=== PATIENT | female | born 1935 | race Caucasian/White ===

== ENCOUNTER → 2016-12-26 | Outpatient (CLI) | payer MEDICARE, OTHER ==
--- NOTE | 2016-12-26 10:37 | CT ---
EXAM DESCRIPTION: CT: Abdomen/Pelvis w/Contrast CLINICAL HISTORY: R63.4. Abnormal weight loss. COMPARISON: None. TECHNIQUE: Spiral-axial scans at 5.0 mm intervals through the abdomen and pelvis, after nonionic IV contrast. No oral contrast. Coronal and sagittal 2.0 mm reconstructions. Delayed scans, liver through the pelvis. Axial-spiral 5mm. No adverse reactions. Total Exam DLP: 605.45 mGy-cm. This exam was performed according to our departmental dose-optimization program which includes automated exposure control, adjustment of the mA and/or kV according to patient size and/or use of iterative reconstruction technique; to reduce radiation dose to as low as reasonably achievable (ALARA). FINDINGS: Lung bases and pleura: Bilateral fluffy nodules in the bases, less than 5 mm in diameter. Also a larger pleural-based density in the posterior recess of the right lung and a soft tissue density 8 mm nodule abutting the pleura and the right hemidiaphragm (series 2, image two). Small nodules and scarring in the inferior lingula and the left posterior recess. Liver, Stomach, Spleen, Adrenal Glands: Organs are unremarkable. Pancreas, Gallbladder, Ducts: Patient increased wall thickness of the gallbladder with radiodense material near the neck. Dilation of the common bile duct. Pancreatic duct not dilated with normal size and enhancement. Kidneys and Ureters: Multiple bilateral cortical cysts, more on the left kidney. No hydronephrosis or perirenal fluid. No radiodense stones. Mesentery: No free fluid. No free intraperitoneal air. Aorta: Moderate atherosclerotic calcification. Small Bowel: Minimal oral contrast with no distention. Terminal Ileum/Cecum: No distention. Oral contrast and fecal material in the cecum. Appendix not seen. Normal density of the surrounding fat. Colon: Diffuse fecal material with oral contrast in the proximal colon. Diverticula in the rectosigmoid. No complications. Pelvic Organs: Calcification and heterogeneous density and enhancement which could be within the left lateral endometrial cavity, left uterine wall, or medial border of the left ovary. Right ovary is also visible and may contain a small calcification. No calcifications in the urinary bladder. No fluid in the cul-de-sac. Spine and Bony Pelvis: Narrowing of the L5-S1 disc space. Posterior bulging L2-3 disc. Decreased bone density. No compression type abnormalities in the spine or destructive lesions. Minimal levoscoliosis. Minimal hypertrophic changes SI joints and lateral acetabula. Abdominal Wall/Back Soft Tissues: Small inguinal lymph nodes. IMPRESSION: 1. Possible gallbladder wall thickening. Sludge or stones in the gallbladder. Dilated common bile duct. Pancreas negative. Consider abdominal ultrasound. No ascites. Liver negative. 2. Calcification could be within a uterine fibroid, in the uterine wall, or left ovary. Consider pelvic ultrasound to evaluate location of calcification and left ovary. 3. Multiple bilateral renal cysts appear simple. 4. Multiple fluffy and soft tissue nodules in the lung bases. Consider post-contrast lung CT scan to evaluate for additional nodules, other parenchymal disease, and mediastinum/titi. Electronically signed by: Baldomero Slater MD 12/26/2016 10:35 AM CDT Workstation: [id number]
== END | disposition home or self-care (01) ==
LOC: CT 09:07
PROVIDERS: ATTEND Internal Medicine
DX: R63.4 Abnormal weight loss (principal)

== ENCOUNTER 2017-01-18 19:12 | Inpatient (IN) | payer MEDICARE, OTHER ==
--- NOTE | 2017-01-18 19:22 | ED.PDOC ---
History of Present Illness - General Chief Complaint: General Stated Complaint: feeling weak/dizzy Time Seen by Provider: 01/18/17 19:21 Source: patient, family Exam Limitations: no limitations - History of Present Illness Initial Comments: Priscila Carlisle 81 y/o female stated after coming from her chest ct this morning she gradually got weak felt dizzy , nauseated,and chills and not getting better decided to come to er.She stated does not have the appetite and losing weight was seen by teacher drama and oncologist Timing/Duration: 4-6 hours, getting worse Severity: moderate Improving Factors: nothing Worsening Factors: nothing Associated Symptoms: loss of appetite, weakness Allergies/Adverse Reactions: Allergies Promethazine [From Phenergan] Allergy (Verified 01/18/17 19:30) Home Medications: Ambulatory Orders Cephalexin 500 mg PO TID #030 cap 06/21/14 guaiFENesin W/CODEINE LIQ [Robitussin AC] 10 ml PO Q6HRS PRN #250 ml 06/21/14 Ondansetron [Zofran Odt] 4 mg PO Q6-8H PRN #10 tab 06/28/14 Review of Systems - Review of Systems Constitutional: States: weakness, other - weight loss,anorexia EENTM: States: no symptoms reported Respiratory: States: no symptoms reported Cardiology: States: no symptoms reported Gastrointestinal/Abdominal: States: no symptoms reported Genitourinary: States: no symptoms reported Musculoskeletal: States: no symptoms reported Skin: States: no symptoms reported Neurological: States: no symptoms reported Past Medical History (General) - Patient Medical History Hx Seizures: No Hx Stroke: No Hx Dementia: No Hx Asthma: No Hx of COPD: No Hx Cardiac Disorders: No Hx Congestive Heart Failure: No Hx Pacemaker: No Hx Hypertension: No Hx Thyroid Disease: No Hx Diabetes: No Hx Gastroesophageal Reflux: Yes Hx Renal Disease: No Hx Cancer: No Hx of HIV: No Hx Hepatitis C: No Hx MRSA: No Surgical History: no surgical history - Vaccination History Hx Tetanus, Diphtheria Vaccination: No Hx Influenza Vaccination: Yes - Social History Hx Tobacco Use: No Hx Alcohol Use: No Hx Substance Use: No Hx Substance Use Treatment: No Hx Depression: No - Activities of Daily Living Patient Lives Alone: No - lives with son - Female History Patient : No Family Medical History - Family History Mother Family History: No Known Hx Cardiac Disease: Yes - dad-diabetes Hx Family Cancer: Yes - mom-breast/ovarian Physical Exam - Physical Exam General Appearance: Frail, No apparent distress, Ill Appearing, Other - somnolent Eye Exam: bilateral normal Ears, Nose, Throat: hearing grossly normal Neck: non-tender, supple Respiratory: lungs clear, normal breath sounds Cardiovascular/Chest: normal peripheral pulses, regular rate, rhythm, no murmur Peripheral Pulses: radial,right: 1+, radial,left: 1+ Gastrointestinal/Abdominal: normal bowel sounds, soft, no organomegaly, tenderness - mid abdomen no peritoneal signs Back Exam: no CVA tenderness, no vertebral tenderness Extremity: no pedal edema, no calf tenderness Neurologic: no motor/sensory deficits, oriented x 3 Skin Exam: normal color, warm/dry Progress - Progress Progress: 01/18/17 21:17 Vital Signs - 8 hr 01/18/17 19:25 Temperature 100.8 F H Pulse Rate [ 81 left] Respiratory 18 Rate Blood Pressure 132/70 [left] O2 Sat by Pulse 96 Oximetry - Results/Orders Results/Orders: Laboratory Tests 01/18/17 01/18/17 01/18/17 19:27 19:27 19:27 WBC 14.0 H RBC 4.59 Hgb 13.4 Hct 40.6 MCV 88.6 MCH 29.3 MCHC 33.1 RDW 16.1 H Plt Count 180 MPV 7.4 Absolute Neuts (auto) 13.30 H Absolute Lymphs (auto) 0.10 L Absolute Monos (auto) 0.50 Absolute Eos (auto) 0.00 Absolute Basos (auto) 0.00 Neutrophils % 95.4 H Lymphocytes % 0.7 L Monocytes % 3.6 Eosinophils % 0.0 L Basophils % 0.3 Sodium 132 L Potassium 3.9 Chloride 99 L Carbon Dioxide 26 Anion Gap 10.9 L BUN 16 Creatinine 0.90 BUN/Creatinine Ratio 17.8 Random Glucose 149 H Serum Osmolality 268.5 L Calcium 8.8 Total Bilirubin 0.7 AST 182 H ALT 103 H Alkaline Phosphatase 52 Troponin I < 0.02 Serum Total Protein 6.3 L Albumin 3.9 Globulin 2.4 Albumin/Globulin Ratio 1.6 Lipase 30 Urine Color Urine Appearance Urine pH Ur Specific [place] Urine Protein Urine Glucose (UA) Urine Ketones Urine Blood Urine Nitrite Urine Bilirubin Urine Urobilinogen Ur Leukocyte Esterase Urine RBC Urine WBC Ur Epithelial Cells Urine Bacteria 01/18/17 20:16 WBC RBC Hgb Hct MCV MCH MCHC RDW Plt Count MPV Absolute Neuts (auto) Absolute Lymphs (auto) Absolute Monos (auto) Absolute Eos (auto) Absolute Basos (auto) Neutrophils % Lymphocytes % Monocytes % Eosinophils % Basophils % Sodium Potassium Chloride Carbon Dioxide Anion Gap BUN Creatinine BUN/Creatinine Ratio Random Glucose Serum Osmolality Calcium Total Bilirubin AST ALT Alkaline Phosphatase Troponin I Serum Total Protein Albumin Globulin Albumin/Globulin Ratio Lipase Urine Color Yellow Urine Appearance Sl cloudy Urine pH 8.5 H Ur Specific [place] 1.015 Urine Protein 30 Urine Glucose (UA) Negative Urine Ketones Trace Urine Blood Trace-intact H Urine Nitrite Negative Urine Bilirubin Negative Urine Urobilinogen 1.0 Ur Leukocyte Esterase Moderate H Urine RBC 1-3 Urine WBC 30-40 H Ur Epithelial Cells 0-1 Urine Bacteria 3+ H - EKG/XRAY/CT EKG: Sinus, nonspecific ST T wave Chg Comments: heart rate-84;prolonged Qt-480ms XRAY: chest - copd changes CT Ordered: Yes - abd/p-esophageal thickening;copd/bronchiectasis Departure - Departure Clinical Impression: Malaise and fatigue Urinary tract infection Qualifiers: Urinary tract infection type: site unspecified Hematuria presence: without hematuria Qualified Code(s): N39.0 - Urinary tract infection, site not specified Time of Disposition: 23:08 Disposition: Admit Patient Condition: Fair Referrals: Zoltan Krishnan MD [Primary Care Provider] - 1-2 Weeks Home Medications: Ambulatory Orders Cephalexin 500 mg PO TID #030 cap 06/21/14 guaiFENesin W/CODEINE LIQ [Robitussin AC] 10 ml PO Q6HRS PRN #250 ml 06/21/14 Ondansetron [Zofran Odt] 4 mg PO Q6-8H PRN #10 tab 06/28/14 Decision To Admit - Decistion To Admit Decision to Admit Reason: Admit from ER Decision to Admit Date: 01/18/17 Decision to Admit Time: 23:09 - D/W Tricia High-ANP/Hospitalist for admit
[2017-01-18] MEDS ORDERED: SODIUM CHLORIDE 0.9% 500ML 500 ML IVS ONE (19:23)
--- NOTE | 2017-01-18 21:42 | RAD ---
EXAM DESCRIPTION: Chest,1 View CLINICAL HISTORY: 81 years Female vomiting COMPARISON: 06/28/2014 FINDINGS: Cardiac size is stable. Aorta is elongated. Lungs are hyperinflated. Scarring in both lung apices. No evidence of acute infiltrate. No pleural fluid. IMPRESSION: Hyperinflation consistent with COPD No acute process noted Electronically signed by: Marva Carlin 01/18/2017 9:41 PM CDT
--- NOTE | 2017-01-18 22:59 | CT ---
EXAM DESCRIPTION: Abdoment/Pelvis w/o Contrast CLINICAL HISTORY: 81 years Female fever/pain COMPARISON: 12/26/2016 TECHNIQUE: Contiguous axial images obtained through the abdomen and pelvis without IV contrast. Reformatted images obtained. This exam was performed according to our department optimization program which includes automated exposure control, adjustment of the mA and/or kv according to patient size and/or use of iterative reconstruction technique. FINDINGS: There are changes of COPD with bronchiectasis in the right middle lobe and lingula and associated areas of atelectasis. Dependent atelectasis present in the lung bases. Mild wall thickening in the distal esophagus which may reflect esophagitis. The liver appears unremarkable. The spleen and pancreas appear unremarkable. No adrenal masses. There is contrast in the renal collecting systems and a small amount of residual contrast in the renal parenchyma from previous CT examination. Numerous small renal cysts are noted which appear stable. The gallbladder is visualized. No aneurysmal dilatation of the aorta. There is a large volume of fecal material in the colon. No evidence to suggest bowel obstruction. Nonvisualization of the appendix. Calcifications in the uterus as were present on the previous Incomplete distention of the urinary bladder with contrast. Multilevel degenerative change in the spine. IMPRESSION: Bronchiectasis and changes of COPD in the chest Small amount of wall thickening in the distal esophagus which may reflect esophagitis No evidence of bowel obstruction Large volume of fecal material in the colon Electronically signed by: Marva Carlin 01/18/2017 10:57 PM CDT
[2017-01-18] MEDS ORDERED: MEROPENEM 500 MG in SODIUM CHL 0.9% 50ML MIN-BAG+ 50 ML IVPB ONE (23:11)
--- NOTE | 2017-01-18 23:11 | HP ---
SUPERVISING PHYSICIAN: Zoltan Krishnan MD CHIEF COMPLAINT: Feeling weak and dizzy. HISTORY OF PRESENT ILLNESS: This is a 81-year-old female patient that presented to the Emergency Room this evening after progressive weakness during the day. She had a CT done earlier today at the hospital per Dr. Johns, oncologist, in [place]. She has been seeing him due to weight loss over the last several months and for a pulmonary nodule. She said when she got home after her CT scan, she just got to the point where she could not even get out of bed. She also has polymyalgia rheumatica and was concerned that it could have been some of her symptoms from that. She actually could not get out of bed and called 911. In the Emergency Room, her WBCs were elevated at 14,000 with a left shift with neutrophils 95.4%. Sodium was low at 132, potassium 3.9, chloride 99, carbon dioxide 26, BUN 16, creatinine 0.90. Her lactic acid was 1.5. AST was elevated at 182 and ALT was 103. She had a urinary tract infection that showed trace intact urine blood, moderate amount of urine leukocyte esterase, 30 to 40 urine WBCs and 3+ urine bacteria. She was given some fluids. She was started on Merrem. She also had a temperature in the Emergency Room of 100.8. After she received fluids, she was somewhat more alert and I was called for admission. PAST MEDICAL HISTORY: 1. B12 deficiency. 2. Seasonal allergies. 3. Gastroesophageal reflux disease. 4. Osteoporosis. 5. Polymyalgia rheumatica. PAST SURGICAL HISTORY: 1. Tonsillectomy and adenoidectomy. ALLERGIES: PHENERGAN, KONRAD INHIBITORS. SOCIAL HISTORY: She is retired. She is . She has two children. She denies any tobacco, ETOH or illicit drug use. REVIEW OF SYSTEMS: GENERAL: Positive for fatigue, weight loss and fever. HEENT: Negative for sinus symptoms, ear pain, vision changes or sore throat. RESPIRATORY: Negative for wheezing, coughing or shortness of breath. CARDIAC: Negative for chest pain, palpitations or tachycardia. GASTROINTESTINAL: Negative for nausea, vomiting, diarrhea, constipation or abdominal pain. GENITOURINARY: Negative for hematuria, dysuria or polyuria. MUSCULOSKELETAL: Positive for mild lower back pain. SKIN: Negative for lesions or rashes. NEUROLOGIC: Positive for dizziness and weakness, negative for seizures. PHYSICAL EXAMINATION: VITAL SIGNS: Temperature 100.8. Heart rate 82. Blood pressure 107/76. Respiratory rate 18. O2 saturation 97%. GENERAL: This is a 81-year-old cachectic female patient who is lying in her hospital bed. HEENT: Normocephalic, atraumatic. Pupils are equal and reactive. Oropharynx is clear. RESPIRATORY: Somewhat diminished at the bases, otherwise clear to auscultation. No wheezing or crackles noted. CARDIOVASCULAR: Regular rate and rhythm. ABDOMEN: Soft, nondistended, nontender. Bowel sounds are positive. She has mild CVA tenderness bilaterally. EXTREMITIES: No cyanosis, clubbing or edema. LABORATORY: As per history of present illness. FILMS: Abdominal and pelvic CT per radiologic interpretation showed bronchiectasis and changes of chronic obstructive pulmonary disease in the chest. Small amount of wall thickening in the distal esophagus which may reflect esophagitis. No evidence of bowel obstruction and a large amount of fecal material in the colon. Her chest x-ray per radiologic interpretation shows hyperinflation consistent with chronic obstructive pulmonary disease and no acute process noted. All other labs and films have been reviewed via the EMR. ASSESSMENT: 1. Urinary tract infection with concerns for pyelonephritis. 2. Febrile illness, most likely secondary to #1. 3. Leukocytosis. 4. Recent diagnosis of pulmonary nodule, followed by Dr. Johns, oncologist , with CT scan of the chest done earlier on the date of admission. 5. Constipation. 6. Gastroesophageal reflux disease. 7. Elevated liver function tests. 8. History of hypertension, presently on no medications. 9. Osteoporosis. 10. History of polymyalgia rheumatica. PLAN: We will admit the patient to the hospital. I will start her on Rocephin until her cultures become available. Blood cultures and urine cultures have been done. I have restarted her home medications. I have added Lovenox for DVT prophylaxis and a proton pump inhibitor for ulcer prophylaxis. Otherwise, we will continue to monitor the patient closely and follow as needed. Dr. Krishnan is the collaborating physician and available for consultation. #[id number] [facility]
[2017-01-18] MEDS ORDERED: SODIUM CHL 0.9% 50ML MIN-BAG+ 50 ML IVPB ONE (23:27)
[2017-01-18] MEDS ORDERED: MEROPENEM 500 MG VIAL IVPB ONE (23:27)
[2017-01-19] MEDS ORDERED: LEVALBUTEROL NEBS 1.25 MG/3 ML VIAL INH PRN (00:22)
[2017-01-19] MEDS ORDERED: ONDANSETRON INJ 4 MG/2 ML VIAL IV PRN (00:22)
[2017-01-19] MEDS ORDERED: ACETAMINOPHEN 325 MG TAB PO PRN (00:22)
[2017-01-19] MEDS ORDERED: IV SET AND CAP CHANGE INJ INJ SCH (00:30)
[2017-01-19] MEDS ORDERED: PANTOPRAZOLE SODIUM IV 40 MG VIAL IV SCH (00:30)
[2017-01-19] MEDS ORDERED: ENOXAPARIN SODIUM 40 MG/0.4 ML SYG SUBCU SCH (00:30)
[2017-01-19] MEDS ORDERED: SODIUM CHL 0.9% 50ML MIN-BAG+ 50 ML IVPB ONE ×3 (00:42→19:20)
[2017-01-19] MEDS ORDERED: cefTRIAXone SODIUM 1 GM VIAL ONE ×3 (00:42→19:20)
[2017-01-19] MEDS ORDERED: MAGNESIUM HYDROXIDE 30 ML UD PO ONE (02:00)
[2017-01-19] MEDS: cefTRIAXone SODIUM 1 GM in SODIUM CHL 0.9% 50ML MIN-BAG+ 50 ML IVPB SCH ×2 (06:08→17:38)
[2017-01-19] MEDS: predniSONE 5 MG TAB PO SCH (08:02)
--- NOTE | 2017-01-19 18:29 | PN ---
DATE: 01/19/17 SUBJECTIVE: The patient earlier in the morning was noticeably confused but as the day progressed her appetite improved and her ability to respond to questioning improved to the point that she was much improved towards her normal state of mind by the afternoon. It was noted at home that she did have severe fever and associated chills having to get outside into the sunshine in order to be warmed up. She had 1 episode where she almost passed out and was actually helped to fall down carefully to the floor because she was unable to stand and the ambulate without significant injury at the time. In the Emergency Room, she was found to have very significant evidence of a urinary tract infection and final culture is pending. She was given an initial dose of Meropenem 500 mg IV in the Emergency Room because of the Emergency Room physician's opinion of the significance of the underlying infection and its contribution to her altered loss of consciousness. This was subsequently changed over to Ceftriaxone which will be continued with clinical response to be carefully monitored. OBJECTIVE: VITALS: Temperature earlier today was 99.4, it was 100.8 yesterday. Blood pressure 111/71, pule oximetry 93% on room air. Her weight is stable at 41.3 kilos. LUNGS: Clear. HEART: Tones regular. ABDOMEN: Somewhat tender especially on the right side with no masses or organomegaly otherwise evident. Review of her CT scan did show a fairly significant fecal impaction in the ascending colon. Will try some Milk of Magnesia. LABORATORY: White count is down from 14,000 to 11,900 with 92% neutrophils. Chemistry shows sodium is down from 132 to 131, potassium down to 3.6, BUN is normal, osmolality has dropped to 263, calcium 8.2. Liver enzymes have also dropped from AST 182 to 85, and ALT 103 to 86. Albumin is 3.3. Blood and urine culture at this time appear to be within normal limits. Initial urinalysis showed 30 to 40 WBCs and 3+ bacteriuria suggesting a urinary tract infection currently under treatment with Rocephin. ASSESSMENT: 1. Significant altered level of consciousness with confusion and falling with family unable to support her landing on the floor. This has shown some clinical improvement during this afternoon of her first hospitalized day. 2. Probable acute urinary tract infection with concerns for pyelonephritis with the patient's presentation and associated confusion state. 3. Febrile illness with temperature 100.8 probably secondary to the urinary tract infection. 4. Significant leukocytosis showing some improvement slowly. 5. Recent diagnosis of a pulmonary nodule being followed closely by Dr. Johns, oncologist. 6. Constipation. 7. Gastroesophageal reflux disease. 8. Elevated liver function studies showing improvement. 9. History of hypertension presently on no medications. 10. History of osteoporosis. 11. History of polymyalgia rheumatica. PLAN: Continue IV antibiotics until tomorrow morning. Have Physical Therapy evaluate for safety of ambulation when she goes home. Will repeat some lab to ensure further improvement and await further information from Microbiology Department on urine cultures. Continue treatment and will continue with oral therapy for several days after returning home when stable with followup with Dr. Krishnan in the clinic. #[id number] [facility]
[2017-01-19] MEDS ORDERED: PANTOPRAZOLE SODIUM TAB 40 MG PO ONE (19:20)
[2017-01-19] MEDS ORDERED: ENOXAPARIN SODIUM 40 MG/0.4 ML SYG SUBCU ONE (19:20)
[2017-01-19] MEDS: ENOXAPARIN SODIUM 40 MG/0.4 ML SYG SUBCU SCH (20:04)
[2017-01-20] MEDS: cefTRIAXone SODIUM 1 GM in SODIUM CHL 0.9% 50ML MIN-BAG+ 50 ML IVPB SCH ×2 (05:52→17:27)
[2017-01-20] MEDS: SODIUM CHLORIDE 0.9% (FLUSH) 10 ML SYG IV PRN ×2 (05:52→20:46)
[2017-01-20] MEDS: PANTOPRAZOLE SODIUM TAB 40 MG PO SCH (05:52)
[2017-01-20] MEDS ORDERED: SODIUM CHL 0.9% 50ML MIN-BAG+ 50 ML IVPB ONE (07:02)
[2017-01-20] MEDS ORDERED: cefTRIAXone SODIUM 1 GM VIAL ONE (07:02)
--- NOTE | 2017-01-20 07:23 | RAD ---
EXAM: Single view chest. INDICATION: Fever. COMPARISON: Chest x-ray: 01/18/2017. FINDINGS: Cardiac silhouette: Unremarkable. Lorenza: Unremarkable. Lobar consolidation: None. Pleural effusion: None. Pneumothorax: None. Other: Lungs are emphysematous Bones: Unremarkable. Other: None. IMPRESSION: Emphysematous appearing lungs Electronically signed by: Diony Camargo MD 01/20/2017 7:22 AM CDT Workstation: [id number]
[2017-01-20] MEDS: predniSONE 5 MG TAB PO SCH (08:44)
--- NOTE | 2017-01-20 20:01 | PN ---
DATE: 01/20/17 SUBJECTIVE: Today is the second hospital day of a lady who was admitted to the hospital with high fever and severe chills to the point that she was unable to walk. She does have some decreased memory of her coming to the hospital. Her fever has subsequently improved. Her initial altered level of consciousness has also shown some improvement. She was able to walk with the assistance and observation of the physical therapist, but their recommendation is that she use a walker for support. OBJECTIVE: Afebrile, pulse 66, blood pressure 102/64, pulse oximetry 97% on room air. Generally the patient seems to be more alert. No complaint of chills or fever. She was happy to have been able to participate with the walking with the therapist yesterday, but does admit that she does have a walker at home but it is too big for their small house. She would like to have a walker that would have some wheels in the front so that she can roll it along as she walks for support. Also a bedside commode would be helpful. LUNGS: Have some occasional rhonchi more on the right than the left base. HEART: Tones regular. ABDOMEN: Soft. Chest x-ray today failed to show any significant infiltrative processes. ASSESSMENT: 1. Significant altered level of consciousness noted on admission with associated confusion and falling with the family having to support her as she fell to the floor. She has improved and has tested to the point that she will be able to ambulate with support of a walker upon return home with special risk reductions for falling. 2. Probable acute urinary tract infection with concerns of pyelonephritis initially with her shaking chills and fever and associated confusion state showing improvement. 3. Febrile illness with temperature 100.8 on admission probably secondary to a urinary tract infection with pyuria and bacteriuria on urinalysis. 4. Significant leukocytosis showing improvement steadily. 5. History of recent diagnosis of pulmonary nodule being followed closely by Dr. Johns, oncologist, for possible neoplastic process. 6. Chronic constipation. 7. History of gastroesophageal reflux disease. 8. History of elevated liver function studies on admission showing improvement. 9. History of hypertension currently stable. 10. History of osteoporosis. 11. History of polymyalgia rheumatica. PLAN: Will anticipate continuation and completion of the third day of IV therapy because of the underlying appearance of an early sepsis upon admission and then continuation of oral therapy for 5 to 7 days thereafter. This could be one of the second or third generation oral cephalosporins to followup on the Rocephin that she has received in the hospital. Prescription for rolling walker that was small enough to fit through some of the doors and hallways of her home as well as a bedside commode will be available and hopefully will be able to get Durable Medical Equipment to provide these by tomorrow morning. Anticipate continued outpatient management and followup by tomorrow. #[id number] [facility]ITALBianka
[2017-01-20] MEDS: ENOXAPARIN SODIUM 40 MG/0.4 ML SYG SUBCU SCH (20:46)
[2017-01-21] MEDS ORDERED: SODIUM CHL 0.9% 50ML MIN-BAG+ 50 ML IVPB ONE (04:55)
[2017-01-21] MEDS ORDERED: cefTRIAXone SODIUM 1 GM VIAL ONE (04:55)
[2017-01-21] MEDS: cefTRIAXone SODIUM 1 GM in SODIUM CHL 0.9% 50ML MIN-BAG+ 50 ML IVPB SCH (06:10)
[2017-01-21] MEDS: SODIUM CHLORIDE 0.9% (FLUSH) 10 ML SYG IV PRN (06:11)
[2017-01-21] MEDS: PANTOPRAZOLE SODIUM TAB 40 MG PO SCH (06:13)
[2017-01-21] MEDS: predniSONE 5 MG TAB PO SCH (08:44)
[2017-01-21 10:19] VITALS: BP 128/70; TEMP 98; O2SAT 99
--- NOTE | 2017-01-24 17:00 | DS ---
SUPERVISING PHYSICIAN: Zoltan Krishnan M.D. DISCHARGE DIAGNOSIS: 1. Significant altered level of consciousness noted on admission with associated confusion and falling with the family having to support the patient to the floor showing improvement and able to ambulate with support of a walker. 2. Probable acute urinary tract infection with concerns of pyelonephritis initially with the patient showing good improvement after IV fluids and antibiotics. 3. Febrile illness with temperature initially of 100.8 on admission probably secondary to the urinary tract infection. 4. Significant leukocytosis, improvement noted secondary to #2. 5. History of recent diagnosis of pulmonary nodule being followed closely by Dr. Johns, oncologist, for possible neoplastic process. 6. Chronic constipation. 7. History of gastroesophageal reflux disease. 8. History of elevated liver function studies on admission showing improvement. 9. History of hypertension currently stable. 10. History of osteoporosis. 11. History of polymyalgia rheumatica. HISTORY OF PRESENT ILLNESS: Ms. Carlisle is a 81-year-old female patient that presented to the Emergency Department after progressive weakness throughout the day. She had a CT done earlier at the hospital as per Dr. Johns in [place]. She had seen him due to weight loss over the last several months with a pulmonary nodule. She said when she got home after the CT scan, she just got to the point where she could not even get out of bed. She also has polymyalgia rheumatica and was concerned that it could have been some of the symptoms from that. She actually could not get out of bed and then called 911. In the Emergency Department, her white count was elevated at 14, 000 with a left shift. Sodium was noted at 132. Lactic acid was normal at 1.5. Her AST and ALT were both elevated. She had a urinary tract infection that showed trace intact blood with a moderate amount of urine leukocyte esterase, 30 to 40 urine WBCs and 3+ urine bacteria. She was given IV fluids, started on Merrem. She initially had a temperature in the Emergency Department of 100.8. After fluids, she was somewhat more alert and at that point was admitted to the hospital in stable condition. LABORATORY STUDIES: White count initially on admission did show leukocytosis of 14,000, prior to discharge after initiation of treatment was down to 5,800. H&H showed to be within normal limits, at discharge was 12.4 and 37.4 with platelet count 166,000. Differential initially did show a left shift, after initiation of treatment this had returned to normal. Chemistries on admission showed persistent sodium of 132 as well as at discharge was down to 128, potassium was low at 3.4, random glucose was 79 at discharge, BUN 15, creatinine 0.68. Liver functions did show an initial elevation of AST and ALT, but had shown to improve and return to baseline status prior to discharge with AST being 85, ALT 86. All other liver functions were within normal limits. Urinalysis showed trace of intact blood with moderate leukocyte esterase with 30 to 40 WBCs, 0 to 1 epithelials, with 3+ bacteria. A repeat urinalysis on 01/28 showed just a trace of leukocyte esterase and blood, but otherwise microscopic was within normal limits. MICROBIOLOGY: Urine culture final report showed insignificant colony of mixed bryson. She had 2 sets of blood cultures that remained negative after 5 days. RADIOLOGY: Initially in the Emergency Department, she had a chest x-ray and per radiology interpretation showed hyperinflation consistent with COPD. No acute processes noted. She also had an abdominal pelvic CT without contrast and per radiology interpretation showed bronchiectasis and changes of COPD within the chest, a small amount of wall thickening in the distal esophagus which may reflect esophagitis, but no evidence of bowel obstruction. There was a large volume of fecal matter within the colon. EKG on admission showed normal sinus rhythm. HOSPITAL COURSE: Ms. Carlisle was admitted as above on 01/19/17 for confusion. She was started on IV antibiotics as it was felt that her confusion was related a urinary tract infection. She was started on IV antibiotics that included Meropenem initially which was then transitioned to Ceftriaxone. She showed good clinical resolution of her confusion state. Urinalysis showed improvement on second exam. She was ambulating without any difficulty. It was felt that she was clinically improved well enough to be discharged home to have close clinical followup in the outpatient setting. PLAN: Ms. Carlisle was discharged on 01/21/17 with instructions to have close clinical followup with her primary care provider, Dr. Krishnan, in a week and to have a recheck of her sodium levels. She was to call Dr. Krishnan' office on Sunday and establish a followup time. She is to resume her home medications as directed and use a bedside commode and walker as instructed, and return to the hospital should she have any concerning symptoms. At discharge, she was continued on antibiotics to include: 1. Cefuroxime Axetil 500 mg twice daily, #14. She was to have fluid restrictions as directed. Diet at discharge was regular diet as tolerated. Activity as tolerated. Condition on discharge was stable and improved. #[id number] [facility]
== END 2017-01-21 11:46 | disposition home or self-care (01) | DRG 690 ==
LOC: ER 19:12 → OBSVTOIN 23:10 → MS 23:10
PROVIDERS: ADMIT Family Medicine; ATTEND Nurse Practitioner Acute Care
DX: N12 Tubulo-interstitial nephritis, not specified as acute or chronic (principal); K59.09 Other constipation; R91.1 Solitary pulmonary nodule; K21.9 Gastro-esophageal reflux disease without esophagitis; R74.8 Abnormal levels of other serum enzymes; I10 Essential (primary) hypertension; M81.0 Age-related osteoporosis without current pathological fracture; M35.3 Polymyalgia rheumatica; J44.9 Chronic obstructive pulmonary disease, unspecified; E53.8 Deficiency of other specified B group vitamins; Z88.8 Allergy status to other drugs, medicaments and biological substances; Z79.899 Other long term (current) drug therapy

== ENCOUNTER → 2017-01-18 | Outpatient (CLI) | payer MEDICARE, OTHER ==
--- NOTE | 2017-01-18 11:44 | CT ---
EXAM DESCRIPTION: Chest w/Contrast CLINICAL HISTORY: 81 years, Female, SOLITARY PULMONARY NODULE COMPARISON: Chest CT December 26, 2016 TECHNIQUE: Thin-section axial CT images are obtained during rapid bolus administration of nonionic IV contrast media. Reconstructed MPR images are created and reviewed as well. This exam was performed according to our departmental dose-optimization program, which includes automated exposure control, adjustment of the mA and/or kV according to patient size and/or use of iterative reconstruction technique. FINDINGS: Bolus enhanced examination demonstrates satisfactory expansion of both lungs. Mild thin linear scarring in each posterior apical region near the major fissure pleural reflections is evident. At the posterior right lung base and to a lesser extent on the left there is patchy pleural parenchymal scarring and thickening most consistent with old inflammatory disease. The right minor fissure is poorly delineated suggesting there may be significant right middle lobe atelectasis with definite changes of bronchiectasis extending into the anterior right lung base. A small focus of tree-in-bud inflammatory changes in the lateral aspect of the right upper lobe just anterior to the major fissure is consistent with an acute or chronic inflammatory process. The left lung is more normal in appearance with mild coarsened markings at the anterior left lung base suggesting minimal lingular scarring or inflammatory change. No pleural effusions on the right or left are seen in a dominant mass or pattern to suggest metastatic disease is not apparent. Minimal nodular inflammatory changes at the anterior right lung base associated with some of the tubular bronchiectasis is noted as well. Satisfactory vascular enhancement was achieved and the thoracic inlet superior mediastinum paratracheal regions middle mediastinum and hilar structures are normal. The posterior mediastinum demonstrates no significant adenopathy. Dense breast tissue within each breast is present without axillary adenopathy. Marked kyphosis of the dorsal spine with modest degenerative changes without severe compression deformity or destructive process is noted. No soft tissue mass involving the chest wall is seen. The upper abdomen is grossly unremarkable. IMPRESSION: 1. Abnormal lung gilman bilaterally with minimal linear scarring in the posterior medial left lung base and patchy parenchymal inflammation or scarring in the anterior lingular left lung base. 2. Volume loss and tubular bronchiectasis the anterior right lower lung field with poor delineation of the minor fissure and likely significant right middle lobe atelectasis. 3. Patchy segmental or subsegmental tree-in-bud changes in the lateral aspect of the right upper lobe adjacent to the major fissure consistent with an acute or chronic inflammatory process. There is focal coarse pleural parenchymal scarring at the medial posterior right lung base. 4. A pattern of metastatic disease or a dominant pulmonary nodule or worrisome pattern to suggest primary pulmonary malignancy is not apparent. 5. Marked kyphosis of the dorsal spine without acute compression deformity. Electronically signed by: Den Haque MD 01/18/2017 11:42 AM CDT
== END | disposition home or self-care (01) ==
LOC: CT 09:52
PROVIDERS: ATTEND Internal Medicine
DX: R91.1 Solitary pulmonary nodule (principal)

== ENCOUNTER → 2017-01-25 | Outpatient (CLI) | payer MEDICARE, OTHER | END | disposition home or self-care (01) | LOC: GMAJ 14:14 | PROVIDERS: ATTEND Family Medicine | DX: D51.3 Other dietary vitamin B12 deficiency anemia (principal); D50.8 Other iron deficiency anemias; N39.0 Urinary tract infection, site not specified ==

== ENCOUNTER 2017-04-23 12:27 | Emergency (ER) | payer MEDICARE, OTHER ==
[2017-04-23 13:01] VITALS: TEMP 97.7; O2SAT 96
--- NOTE | 2017-04-23 13:05 | CT ---
EXAM DESCRIPTION: Cervical Spine CLINICAL HISTORY: fall, head lac, old vs new neck pain COMPARISON: None Available. TECHNIQUE: Cervical CT is performed with thin-section axial imaging. MPRs are created and reviewed as well. FINDINGS: There is good alignment of the cervical spine. There is no vertebral abnormality. All cervical intervertebral discs maintain their height normally. Arthritic changes at the atlantoaxial joint and the odontoid process articulates with the tip of the clivus. There is no canal or foraminal compromise. IMPRESSION: Degenerative changes, no acute process observed. This exam was performed according to our departmental dose-optimization program, which includes automated exposure control, adjustment of the mA and/or kV according to patient size and/or use of iterative reconstruction technique. Electronically signed by: Romulo Tan MD 04/23/2017 1:04 PM [facility]
--- NOTE | 2017-04-23 13:06 | CT ---
EXAM DESCRIPTION: Head CLINICAL HISTORY: fall pain COMPARISON: None available TECHNIQUE: Non contrast cranial CT FINDINGS: Ventricles and sulci are unremarkable. There is no hemorrhage or mass. Scattered areas of decreased attenuation in the deep periventricular white matter are present consistent with chronic white matter ischemia. There is no CT evidence of acute or subacute ischemia. The calvarium is unremarkable. The visualized paranasal sinuses and the mastoids are clear. IMPRESSION: 1. Chronic changes, no acute process observed. This exam was performed according to our departmental dose-optimization program, which includes automated exposure control, adjustment of the mA and/or kV according to patient size and/or use of iterative reconstruction technique. Electronically signed by: Romulo Tan MD 04/23/2017 1:05 PM [employer]
[2017-04-23] MEDS ORDERED: TETANUS,DIPHTHERIA,PERTUSSIS 1 EA SYG IM ONE (13:42)
[2017-04-23] MEDS ORDERED: SULFA/TRIMETH 800/160 (DS) TAB 1 EA TAB PO ONE (13:42)
--- NOTE | 2017-04-23 13:45 | ED.PDOC ---
History of Present Illness - General Chief Complaint: Trauma Stated Complaint: fall Time Seen by Provider: 04/23/17 12:28 Source: patient, family Exam Limitations: no limitations - History of Present Illness Initial Comments: the patient is a 81-year-old female presenting to the emergency room secondary to having tripped and fallen at home. She sustained a 1.5 cm laceration to the lateral aspect of her left eyebrow. There is no loss of consciousness. The patient does have a difficult time getting around to start with and uses a walker. She is having a little bit of neck pain but she thinks that this is old neck pain. No new neurological changes. The patient is pleasant. She moves all extremities well and is able to bear weight on her own. The patient does joke and interact appropriately. Timing/Duration: momentarily Severity: mild Improving Factors: nothing Worsening Factors: nothing Associated Symptoms: denies symptoms Allergies/Adverse Reactions: Allergies Promethazine [From Phenergan] Allergy (Verified 04/23/17 12:53) Home Medications: Ambulatory Orders Omeprazole [Prilosec Cap] 20 mg PO DAILY 01/19/17 Prednisone 5 mg PO DAILY 01/19/17 Cefuroxime Axetil 500 mg PO BID #14 tab 01/21/17 Review of Systems - Review of Systems Constitutional: States: no symptoms reported EENTM: States: no symptoms reported Respiratory: States: no symptoms reported Cardiology: States: no symptoms reported Gastrointestinal/Abdominal: States: no symptoms reported Genitourinary: States: no symptoms reported Musculoskeletal: States: see HPI Skin: States: see HPI Neurological: States: no symptoms reported Endocrine: States: no symptoms reported All other Systems: No Change from Baseline Past Medical History (General) - Patient Medical History Hx Seizures: No Hx Stroke: No Hx Dementia: No Hx Asthma: No Hx of COPD: No Hx Cardiac Disorders: No Hx Congestive Heart Failure: No Hx Pacemaker: No Hx Hypertension: No Hx Thyroid Disease: No Hx Diabetes: No Hx Gastroesophageal Reflux: Yes Hx Renal Disease: No Hx Cancer: No Hx of HIV: No Hx Hepatitis C: No Hx MRSA: No Surgical History: no surgical history - Vaccination History Hx Tetanus, Diphtheria Vaccination: No Hx Influenza Vaccination: Yes Hx Pneumococcal Vaccination: No - Social History Hx Tobacco Use: No Hx Alcohol Use: No Hx Substance Use: No Hx Substance Use Treatment: No Hx Depression: No Hx Physical Abuse: No Hx Emotional Abuse: No - Female History Patient is a Female of Child Bearing Age (10 -59 yrs old): No Patient : No Family Medical History - Family History Mother Family History: No Known Hx Cardiac Disease: Yes - dad-diabetes Hx Family Cancer: Yes - mom-breast/ovarian Physical Exam - Physical Exam General Appearance: Alert, Comfortable, Frail, No apparent distress Eye Exam: bilateral normal Ears, Nose, Throat: hearing grossly normal, normal pharynx Neck: full range of motion, other - ild discomfort to palpation in the left posterior upper aspect along the musculature. She reports that this is old. No obvious new trauma or step-off. No crepitus. Respiratory: lungs clear, normal breath sounds, no respiratory distress, no accessory muscle use Cardiovascular/Chest: normal peripheral pulses, no edema, other - egular rate Peripheral Pulses: radial,right: 2+, radial,left: 2+, dorsalis pedis,right: 2+, dorsalis pedis,left: 2+ Gastrointestinal/Abdominal: non tender, soft Rectal Exam: deferred Back Exam: normal inspection, no CVA tenderness, no vertebral tenderness Extremity: non-tender, normal inspection, no pedal edema, normal capillary refill Neurologic: bundles hanger II-XII nml as tested, alert, normal mood/affect, oriented x 3, other - vision is decreased as the patient does not have her glasses Skin Exam: normal color - laceration to the left lateral eyebrow as above. No evidence of any underlying fracture. Comments: Vital Signs - 24 hr 04/23/17 12:27 Temperature 97.7 F Pulse Rate [ 72 pulse ox] Respiratory 20 Rate Blood Pressure 130/77 [Left Arm] O2 Sat by Pulse 96 Oximetry Progress - Progress Progress: 04/23/17 13:46 the patient's 81-year-old female presenting to the emergency room secondary to a fall at home. The patient sustained a 1.5 cm laceration to the lateral aspect of the left eyebrow. This has been irrigated with 150 cc of sterile saline. A Steri-Strip was applied for reapproximation. The patient was given 1 dose of Bactrim and was given a tetanus shot. She does need to ambulate carefully to prevent further falls. ER warnings were given for any significant worsening. Head and cervical spine CT shows no acute pathology. She should follow up with her primary care doctor towards the end of the week. She should expect to find a few new sore areas in the near future. - Results/Orders Results/Orders: cT scans of the head and cervical spine show no evidence of any acute pathology. Departure - Departure Clinical Impression: Laceration of face Qualifiers: Encounter type: initial encounter Qualified Code(s): S01.81XA - Laceration without foreign body of other part of head, initial encounter Fall at home Qualifiers: Encounter type: initial encounter Qualified Code(s): W19.XXXA - Unspecified fall, initial encounter; Y92.099 - Unspecified place in other non-institutional residence as the place of occurrence of the external cause Disposition: Discharge to Home or Self Care Condition: Fair Departure Forms: ED Discharge - Pt. Copy, Patient Portal Self Enrollment Diet: regular diet Activity: increase activity as tolerated Referrals: Zoltan Krishnan MD [Primary Care Provider] - 1-5 Days Home Medications: Ambulatory Orders Omeprazole [Prilosec Cap] 20 mg PO DAILY 01/19/17 Prednisone 5 mg PO DAILY 01/19/17 Cefuroxime Axetil 500 mg PO BID #14 tab 01/21/17 Additional Instructions: the patient's 81-year-old female presenting to the emergency room secondary to a fall at home. The patient sustained a 1.5 cm laceration to the lateral aspect of the left eyebrow. This has been irrigated with 150 cc of sterile saline. A Steri-Strip was applied for reapproximation. The patient was given 1 dose of Bactrim and was given a tetanus shot. She does need to ambulate carefully to prevent further falls. ER warnings were given for any significant worsening. Head and cervical spine CT shows no acute pathology. She should follow up with her primary care doctor towards the end of the week. She should expect to find a few new sore areas in the near future.
[2017-04-23 14:33] VITALS: BP 129/73
== END 2017-04-23 14:33 | disposition home or self-care (01) ==
LOC: ER 12:27
DX: S01.112A Laceration without foreign body of left eyelid and periocular area, initial encounter (principal); Z23 Encounter for immunization; W01.0XXA Fall on same level from slipping, tripping and stumbling without subsequent striking against object, initial encounter; Y92.009 Unspecified place in unspecified non-institutional (private) residence as the place of occurrence of the external cause

== ENCOUNTER 2017-04-26 06:38 | Inpatient (IN) | payer MEDICARE, OTHER ==
[2017-04-26] MEDS ORDERED: SODIUM CHLORIDE 0.9% 1000ML 1,000 ML IVS ONE (07:47)
--- NOTE | 2017-04-26 08:20 | RAD ---
EXAM DESCRIPTION: Chest,1 View CLINICAL HISTORY: fall hypothermia ams COMPARISON: January 20, 2017 FINDINGS: The cardiomediastinal silhouette is unremarkable. There is no airspace consolidation or pleural effusion. The lungs are hyperinflated. There is a questionable small right apical lung nodule. There is no pneumothorax or acute fracture. IMPRESSION: Emphysema with a questionable small right apical lung nodule. Chest CT should be considered for further evaluation. Electronically signed by: Onofre Abel MD 04/26/2017 8:[address] [facility]
--- NOTE | 2017-04-26 08:23 | RAD ---
EXAM DESCRIPTION: Knee,Left 2 or More Views CLINICAL HISTORY: 81 years Female, fall hypothermia ams COMPARISON: None. FINDINGS: 2 views of the left knee show no acute fracture or malalignment. There is no left knee joint effusion. The joint spaces are well-maintained. The soft tissues are unremarkable. IMPRESSION: Negative exam. Electronically signed by: Onofre Abel MD 04/26/2017 8:22 AM [facility]
--- NOTE | 2017-04-26 08:24 | RAD ---
EXAM DESCRIPTION: Pelvis CLINICAL HISTORY: 81 years Female, fall hypothermia ams COMPARISON: CT January 18, 2017 FINDINGS: There are old healed left-sided pelvic fractures, but no acute fracture or malalignment is identified. The hip and sacroiliac joint spaces are fairly well-maintained. The soft tissues are unremarkable. IMPRESSION: Evidence of remote trauma, but no acute pelvic abnormality. If clinical suspicion of fracture or other pelvic injury persists, CT should be considered. Electronically signed by: Onofre Abel MD 04/26/2017 8:23 AM [facility]
[2017-04-26] MEDS ORDERED: PIPERACILLIN/TAZOBACTAM 3.375 GM in SODIUM CHLORIDE 0.9% 100ML 100 ML IVPB ONE (10:00)
[2017-04-26] MEDS ORDERED: SODIUM CHLORIDE 0.9% 100ML 100 ML IVPB ONE (10:09)
[2017-04-26] MEDS ORDERED: PIPERACILLIN/TAZOBACTAM 3.375 GM VIAL IVPB ONE (10:09)
--- NOTE | 2017-04-26 10:41 | CT ---
EXAM DESCRIPTION: Head CLINICAL HISTORY: fall this am COMPARISON: April 23, 2017 TECHNIQUE: Non contrast cranial CT FINDINGS: There is a tiny subependymal hemorrhage adjacent to the mid body right lateral ventricle. This is a very unusual finding but is unlikely to be significant. The hemorrhage has developed completely since the recent previous CT. There is a tiny amount of related intraventricular hemorrhage layering posteriorly in the occipital horn on the right. The patient has advanced periventricular leukomalacia IMPRESSION: 1. Tiny subependymal hemorrhage on the right has developed since the recent previous. This is a very rare finding and of doubtful significance but likely secondary to the patient hitting her head. This exam was performed according to our departmental dose-optimization program, which includes automated exposure control, adjustment of the mA and/or kV according to patient size and/or use of iterative reconstruction technique. Electronically signed by: Romulo Tan MD 04/26/2017 10:40 AM [facility]
--- NOTE | 2017-04-26 11:24 | ED.PDOC ---
History of Present Illness - General Chief Complaint: Trauma Stated Complaint: fall, outside back porch in night Time Seen by Provider: 04/26/17 07:04 Source: patient, family, EMS Exam Limitations: clinical condition - History of Present Illness Initial Comments: The patient is a 81-year-old female presenting to the emergency room secondary to a fall last night at around 4:30 in the morning while letting her dog outside. The patient was exposed to the cold for probably 2 hours. the patient was altered upon arrival. Tympanic temperature by EMSwas 87. Upon arrival here, central temperature was around 94. The patient remained altered for approximately 2 hours. Heating measures were taken. the patient was seen 3 days ago due to a trip and fall. she does not ambulate well and is frail and old. head ct at that time was negative. the patient has superficial abrasions along her extremeties but no new deformities. she moves all extremeties at this time. she does not remember the fall itself. mild headache is present. no focal neuroligcal changes otherwise. son reports she was in her normal state of health yesterday. Timing/Duration: unsure Severity: moderate Improving Factors: medication Worsening Factors: nothing Associated Symptoms: malaise, weakness Allergies/Adverse Reactions: Allergies Promethazine [From Phenergan] Allergy (Verified 04/26/17 07:00) Home Medications: Ambulatory Orders Omeprazole [Prilosec Cap] 20 mg PO DAILY 01/19/17 Prednisone 5 mg PO DAILY 01/19/17 Cefuroxime Axetil 500 mg PO BID #14 tab 01/21/17 Review of Systems - Review of Systems Constitutional: States: malaise, weakness EENTM: States: no symptoms reported Respiratory: States: no symptoms reported Cardiology: States: no symptoms reported Gastrointestinal/Abdominal: States: no symptoms reported Genitourinary: States: no symptoms reported Musculoskeletal: States: see HPI, other - the patient is sore all over Skin: States: see HPI Neurological: States: see HPI Endocrine: States: no symptoms reported All other Systems: No Change from Baseline Past Medical History (General) - Patient Medical History Hx Seizures: No Hx Stroke: No Hx Dementia: No Hx Asthma: No Hx of COPD: No Hx Cardiac Disorders: No Hx Congestive Heart Failure: No Hx Pacemaker: No Hx Hypertension: No Hx Thyroid Disease: No Hx Diabetes: No Hx Gastroesophageal Reflux: Yes Hx Renal Disease: No Hx Cancer: No Hx of HIV: No Hx Hepatitis C: No Hx MRSA: No Surgical History: no surgical history - Vaccination History Hx Tetanus, Diphtheria Vaccination: No Hx Influenza Vaccination: Yes Hx Pneumococcal Vaccination: No - Social History Hx Tobacco Use: No Hx Alcohol Use: No Hx Substance Use: No Hx Substance Use Treatment: No Hx Depression: No Hx Physical Abuse: No Hx Emotional Abuse: No - Female History Patient : No Family Medical History - Family History Mother Family History: No Known Hx Cardiac Disease: Yes - dad-diabetes Hx Family Cancer: Yes - mom-breast/ovarian Physical Exam - Physical Exam General Appearance: Alert, Other - frail. initially confused Eye Exam: bilateral normal Ears, Nose, Throat: hearing grossly normal, normal ENT inspection, normal pharynx, other - no obvious new sites of head trauma on exam. Neck: full range of motion, supple Respiratory: lungs clear, normal breath sounds, no respiratory distress, no accessory muscle use Cardiovascular/Chest: normal peripheral pulses, regular rate, rhythm, no edema Peripheral Pulses: radial,right: 2+, radial,left: 2+, dorsalis pedis,right: 2+, dorsalis pedis,left: 2+ Gastrointestinal/Abdominal: non tender - very thin, soft Rectal Exam: deferred Back Exam: normal inspection, no CVA tenderness, no vertebral tenderness Extremity: normal range of motion - for age, no pedal edema, normal capillary refill, other - diffuse osreness from fall. Neurologic: webmethods consultant II-XII nml as tested, no motor/sensory deficits, alert, other - initially confused but now aox4 Skin Exam: normal color - with the exception of multiple superficial abrasions on extremeties. Comments: Vital Signs - 24 hr 04/26/17 04/26/17 04/26/17 07:02 07:03 08:20 Temperature 96.2 F L 96.3 F L Pulse Rate [ 66 85 92 H right] Respiratory 26 H 26 H 20 Rate Blood Pressure 153/79 124/68 [left] O2 Sat by Pulse 93 L 100 Oximetry 04/26/17 04/26/17 09:00 10:12 Temperature 96.4 F L Pulse Rate [ 95 H 86 right] Respiratory 20 20 Rate Blood Pressure 118/71 103/48 [left] O2 Sat by Pulse 100 99 Oximetry Progress - Progress Progress: 04/26/17 11:28 the patient is a 81-year-old female presenting to the emergency room after a fall last night with subsequent hypothermia from exposure. The patient has been warmed. Altered mental status has resolved. She does have a tiny intracranial hemorrhage. This is likely asymptomatic. She does have a marked leukocytosis of uncertain origin. Blood culture has been done. Clinically she is not septic. This may be septicemia from an uncertain origin so she is on Zosyn as a broad-spectrum an to cover for that possibility. Admit for monitoring overnight and reevaluation. She will likely need therapy to assist with ambulation in the short-term. - Results/Orders Results/Orders: 04/26/17 07:06 Telemetry .CONTINUOUS 04/26/17 08:22 Telemetry .CONTINUOUS 04/26/17 08:30 EKG STAT blood culture is pending. chest x rays shows no new pathology. head ct shows a tiny right periventricular bleed 6 hours after the fall. no other acute changes. Laboratory Results - last 24 hr 04/26/17 04/26/17 04/26/17 07:20 07:20 09:35 WBC 23.1 H* RBC 4.90 Hgb 14.6 Hct 44.2 MCV 90.2 MCH 29.8 MCHC 33.0 RDW 13.1 Plt Count 248 MPV 7.5 Absolute Neuts (auto) Not Reportable Absolute Lymphs (auto) Not Reportable Absolute Monos (auto) Not Reportable Absolute Eos (auto) Not Reportable Neutrophils % Not Reportable Neutrophils % (Manual) 68.0 Lymphocytes % Not Reportable Lymphocytes % (Manual) 6.0 Monocytes % Not Reportable Monocytes % (Manual) 9.0 Eosinophils % Not Reportable Basophils % Not Reportable Band Neutrophils 17.0 RBC Morphology Plts jannet adequate PT INR PTT (SP) Sodium 133 L Potassium 4.1 Chloride 102 Carbon Dioxide 15 L Anion Gap 20.1 H BUN 16 Creatinine 0.74 BUN/Creatinine Ratio 21.6 H Random Glucose 132 H Serum Osmolality 269.4 L Lactic Acid Calcium 8.8 Magnesium 2.4 Total Bilirubin 0.7 AST 38 ALT 16 Alkaline Phosphatase 38 L Serum Total Protein 7.2 Albumin 4.4 Globulin 2.8 Albumin/Globulin Ratio 1.6 Urine Color Yellow Urine Appearance Sl cloudy Urine pH 6.0 Ur Specific [place] 1.020 Urine Protein Negative Urine Glucose (UA) 100 H Urine Ketones 15 H Urine Blood Trace-intact H Urine Nitrite Negative Urine Bilirubin Negative Urine Urobilinogen 0.2 Ur Leukocyte Esterase Negative Urine RBC 0-1 Urine WBC 1-3 Ur Epithelial Cells 1-3 Urine Bacteria Rare 04/26/17 04/26/17 10:45 10:45 WBC RBC Hgb Hct MCV MCH MCHC RDW Plt Count MPV Absolute Neuts (auto) Absolute Lymphs (auto) Absolute Monos (auto) Absolute Eos (auto) Neutrophils % Neutrophils % (Manual) Lymphocytes % Lymphocytes % (Manual) Monocytes % Monocytes % (Manual) Eosinophils % Basophils % Band Neutrophils RBC Morphology PT 11.2 INR 0.990 PTT (SP) 25.5 Sodium Potassium Chloride Carbon Dioxide Anion Gap BUN Creatinine BUN/Creatinine Ratio Random Glucose Serum Osmolality Lactic Acid 1.3 Calcium Magnesium Total Bilirubin AST ALT Alkaline Phosphatase Serum Total Protein Albumin Globulin Albumin/Globulin Ratio Urine Color Urine Appearance Urine pH Ur Specific [place] Urine Protein Urine Glucose (UA) Urine Ketones Urine Blood Urine Nitrite Urine Bilirubin Urine Urobilinogen Ur Leukocyte Esterase Urine RBC Urine WBC Ur Epithelial Cells Urine Bacteria ekg shows nsr, mild right axis. no acute st seg changes concerning for ishcemia. Departure - Departure Clinical Impression: Intracranial hemorrhage Fall at home Qualifiers: Encounter type: initial encounter Qualified Code(s): W19.XXXA - Unspecified fall, initial encounter; Y92.099 - Unspecified place in other non-institutional residence as the place of occurrence of the external cause Altered mental status Qualifiers: Altered mental status type: transient alteration of awareness Qualified Code(s) : R40.4 - Transient alteration of awareness Hypothermia Qualifiers: Encounter type: initial encounter Qualified Code(s): T68.XXXA - Hypothermia, initial encounter Leukocytosis Qualifiers: Leukocytosis type: bandemia Qualified Code(s): D72.825 - Bandemia Disposition: Admit Patient Home Medications: Ambulatory Orders Omeprazole [Prilosec Cap] 20 mg PO DAILY 01/19/17 Prednisone 5 mg PO DAILY 01/19/17 Cefuroxime Axetil 500 mg PO BID #14 tab 01/21/17 Decision To Admit - Decistion To Admit Decision to Admit Reason: Medical Nature Decision to Admit Date: 04/26/17 Decision to Admit Time: 11:33
--- NOTE | 2017-04-26 12:22 | HP ---
SUPERVISING PHYSICIAN: Zoltan Krishnan M.D. CHIEF COMPLAINT: Fall, hypothermia and leukocytosis. HISTORY OF PRESENT ILLNESS: Ms. Carlisle is a 81 year-old female patient that presented to the Emergency Room this morning after she sustained a fall during the night around 4:30 this morning while she was attempting to let her dog outside. She was found by her son around 6:00 next to the door but the door was open and the patient was lying on the floor. EMS was called and upon arrival the patient's temperature by EMS was noted by tympanic methods of 87 degrees. On arrival to the Emergency Department, her temperature was noted to be 94. Initially on admission, she had an altered mentation for approximately 2 hours. While in the E. R. during heating efforts, the patient showed improvement in her mentation. The patient had been seen previously 3 days in the E. R. again for a fall as she has had difficulty ambulating and is very frail and advanced in age. Initially head CT at that time was noted no acute findings. Today, CT findings per radiology interpretation showed a tiny right periventricular bleed that was noted 6 hours after the fall but no other acute changes. Of note is that her CBC showed a significant leukocytosis at 23,100 with increased bands at 10%. No obvious of infection were noted both on x-ray of the chest and urinalysis. She had multiple x-rays of her pelvis and knee secondary to her fall and as per those reports there were no acute pelvic abnormalities as well as on the knee x-ray, no acute fractures were identified. Her vital signs on arrival to the Emergency Department again showed her to be hypothermic with a temperature of 96.2 with saturations on room air at 93% with respirations 20 to 26, blood pressure 153/79, heart rate 85. Given the degree of leukocytosis with increased bands, Dr. Jimenez, E. R. physician, started the patient on Zosyn for coverage to further rule out any possible underlying infections. Blood cultures were also completed and the patient at this point is going to be admitted to the Medical/Surgical floor for ongoing treatment and close monitoring. She was admitted in stable condition. PAST MEDICAL HISTORY: 1. Vitamin B12 deficiency. 2. Seasonal allergies. 3. Gastroesophageal reflux disease. 4. Osteoporosis. 5. Polymyalgia rheumatica. 6. History of weight loss with the patient having a noted pulmonary nodule being followed by Dr. Johns, Oncology, in [place] and also notes there is a history of vertigo, unknown etiology, currently under [facility] physical therapy for treatment. PAST SURGICAL HISTORY: 1. Tonsillectomy and adenoidectomy. CURRENT MEDICATIONS: ALLERGIES: PHENERGAN AND KONRAD INHIBITORS. FAMILY HISTORY: Positive for Parkinson's disease in her father and unspecified cancer in her mother's side. SOCIAL HISTORY: The patient is retired. She is and has 2 children. She lives with her son and denies any tobacco, illicit drug or alcohol usage. REVIEW OF SYSTEMS: CONSTITUTIONAL: Noted general malaise and weakness. No reported fevers but was moderately hypothermic on admission. HEENT: No reported headaches or vision changes. She does have apparently a recent history of vertigo. RESPIRATORY: Denies any wheezing, coughing or shortness of breath. CARDIOVASCULAR: Denies any chest pains, palpitations or tachycardia. GASTROINTESTINAL: Negative for any nausea, vomiting, diarrhea or constipation. GENITOURINARY: Negative for any hematuria or dysuria or other urinary symptoms. MUSCULOSKELETAL: As noted in History of Present Illness, multiple old healing traumatic wounds from falls with some abrasions to the extremities. NEUROLOGIC: As noted in History of Present Illness, initially was lethargic on admission and shown some mental changes, but resolved with treatment after the patient was warmed up and started on some fluids. The patient denied any changes in vision, but again it is noted that she has had some vertigo and issues with dizziness. PHYSICAL EXAMINATION: VITAL SIGNS: Initial temperature was 96.2, pulse 85, blood pressure 153/79, respirations 20 to 26 with saturation 93% on room air. HEENT: As noted above previously. Oropharynx was pink. Mucosal membranes were dry. There was some mild ecchymosis noted to the lateral right side of the tongue with no obvious trauma. No obvious facial trauma or head trauma noted. NECK: Non-tender with full range of motion, supple with no jugular venous distention noted. CHEST: Lungs were clear to auscultation bilaterally without any rhonchi, wheezing or rales. CARDIOVASCULAR: Regular rate and rhythm without appreciable murmurs, gallops, or rubs. ABDOMEN: Soft, non-tender with positive bowel sounds. BACK: There was no vertebral tenderness. No CVA tenderness and no obvious trauma or deformities. EXTREMITIES: No deformities noted but there were diffuse abrasions and healing ecchymotic areas to the lower extremities, but no cyanosis, clubbing or edema. NEUROLOGIC: Cranial nerves II-XII are grossly intact. Facial features were symmetrical. Extraocular movements are within normal limits. There was no notable nystagmus. Mentally she was alert and oriented times three. INTEGUMENT: Skin was pink, warm and dry on admission to the Medical/Surgical floor. Again, there were multiple superficial abrasions on the extremities. LABORATORY STUDIES: CBC showed a severe leukocytosis with a white count of 23, 100, hemoglobin 14.6, hematocrit 44.2, platelet count 248,000. Differential did show increased bands. Coagulation study showed normal PT and PTT. Chemistries showed mild hyponatremia with sodium 133, potassium 4.1, BUN 16, creatinine 0.74 with serum osmolality 269. Liver functions showed to be within normal limits. Lactic acid was normal at 1.3. Urinalysis showed just 100 of glucose with ketones, trace intact blood, otherwise within normal limits. MICROBIOLOGY: Blood cultures are pending. RADIOLOGY: She had a CT of the head and per radiology interpretation there was note of a tiny subependymal hemorrhage on the right that has developed since previous CT on 04/23/17 which is a very rare finding and doubtful of any significance, but likely secondary to the patient hitting her head. She also had a pelvis x-ray and knee x-ray with no acute findings. Chest x-ray single view chest per radiology interpretation showed emphysema with questionable small right apical lung nodules which is not a new finding. CT of the cervical spine is pending. ASSESSMENT: 1. Closed head injury secondary to a fall with evidence of CT of a tiny right periventricular bleed 6 hours post fall with unknown loss of consciousness with initial presentation of some acute mental status change felt to be secondary to hypothermia with the patient improving and returning back to baseline mental status with warming efforts. The patient is not on any form of anticoagulants. 2. Same level fall with unknown loss of consciousness resulting in an environmental exposure and ongoing resultant hypothermia. 3. Leukocytosis felt to be secondary to demarginalization from trauma and environment exposure with no obvious etiology of infectious process. 4. Mild electrolyte imbalance with hyponatremia. 5. Elevated anion gap with a low CO2 more likely an acute metabolic acidosis from dehydration and acute trauma with a normal lactic acid. 6. History of recent pulmonary nodules followed by Dr. Johns, oncologist, seen on CT scan on previous admissions in January. 7. History of constipation. 8. Gastroesophageal reflux disease. 9. History of hypertension but currently on no medications. 10. Osteoporosis. 11. History of polymyalgia rheumatica. PLAN: The patient will be admitted to the hospital for close monitoring given the closed head injury and the environmental exposure and hypothermia. She will have warming measures continued on the floor and closely monitored. She will have frequent neurologic checks per protocol. If she should show any change in mental status or other concerning symptoms, certainly will warrant repeat CT to further evaluate the identified intracranial hemorrhage on initial CT. Will start on some IV fluids with some normal saline and potassium to help correct the underlying hyponatremia and mild dehydration, and hopefully with correction of hypothermia and fluid status, the metabolic process as noted with an elevated anion gap and low CO2 will be corrected as well as the underlying leukocytosis. She was given a dose of Zosyn in the Emergency Department although given that there is no obvious infection. She is stable and afebrile. I will hold off on any additional antibiotics and I will plan to repeat labs in 6 to 12 hours to further evaluate any worsening of the leukocytosis and treat accordingly. Should she show need for antibiotics, certainly will continue antibiotics as appropriate. Will get a Physical Therapy and Social Service evaluation considering that she has had multiple falls and multiple trips to the Emergency Department and is high risk for falls. Will anticipate length of stay to be at least 2 to 3 days. Until then, will continue to monitor and treat appropriately. #[id number] [facility]
[2017-04-26] MEDS ORDERED: ONDANSETRON INJ 4 MG/2 ML VIAL IV PRN (13:21)
[2017-04-26] MEDS ORDERED: ACETAMINOPHEN 325 MG TAB PO PRN (13:21)
[2017-04-26] MEDS ORDERED: SODIUM CHLORIDE 0.9% (FLUSH) 10 ML SYG IV PRN (13:21)
[2017-04-26] MEDS ORDERED: KCL 10 MEQ/D5 1/2NS 1,000 ML IVS PRN (13:30)
[2017-04-26] MEDS: IV SET AND CAP CHANGE INJ INJ SCH (13:47)
--- NOTE | 2017-04-26 18:34 | PCM.CORE ---
Physician DVT/VTE - Contraindications Medication Contraindication: Medical Contraindication - possible intracranial bleed - Nurse DVT Assessment & Total Each Risk Factor Represents 3 Points: Age over 75 years DVT Assessment Score: 3 - 5 or more Very High Risk Treatments: Early Ambulation *, Sequential Compression Device
[2017-04-26] MEDS ORDERED: DEX 5% W/NACL 0.9% 1000ML 1,000 ML IVS PRN (19:55)
[2017-04-26] MEDS ORDERED: DEX 5% W/NACL 0.9% 1000ML 1,000 ML IVS ONE (20:06)
[2017-04-26] MEDS ORDERED: SODIUM CHLORIDE 0.9% (FLUSH) 10 ML SYG IV SCH (21:00)
--- NOTE | 2017-04-26 21:40 | CT ---
EXAM DESCRIPTION: Thoracic Spine CLINICAL HISTORY: 81 years Female same level fall unwitnesed with back pain TECHNIQUE: Contiguous axial CT images obtained through the without IV contrast. Reformatted images obtained. This exam was performed according to our department optimization program which includes automated exposure control, adjustment of the mA and/or kv according to patient size and/or use of iterative reconstruction technique. COMPARISON: None. FINDINGS: There is atelectasis at each lung base. Thoracic kyphosis is exaggerated. Motion significantly limits detail. There is moderate indentation of the superior endplate of T11 but this is more likely chronic than acute. T7 and T8 and T9 demonstrate mild height loss that also is most likely chronic. No definite acute fracture of the ribs or elsewhere is seen. No significant pleural effusion. No pneumothorax. IMPRESSION: No definite acute abnormality identified. Electronically signed by: Baldomero Tovar 04/26/2017 9:38 PM [facility]
--- NOTE | 2017-04-26 21:42 | CT ---
EXAM DESCRIPTION: CT CERVICAL SPINE CLINICAL HISTORY: same level fall unwitnesed with back pain COMPARISON: None Available. TECHNIQUE: Contiguous axial images of the cervical spine were obtained followed by reconstruction images.This exam was performed according to our departmental dose-optimization program, which includes automated exposure control, adjustment of the mA and/or kV according to patient size and/or use of iterative reconstruction technique. FINDINGS: There is no acute fracture or subluxation. The prevertebral soft tissues are within normal limits. IMPRESSION: No acute fracture or subluxation. Electronically signed by: Baldomero Tovar 04/26/2017 9:41 PM [facility]
--- NOTE | 2017-04-26 21:44 | CT ---
EXAM DESCRIPTION: Lumbar Spine CLINICAL HISTORY: same level fall unwitnesed with back pain COMPARISON: None Available. TECHNIQUE: Contiguous axial images of lumbar spine were obtained followed by reconstruction images. FINDINGS: Exophytic lesion of the left kidney may be a cyst. Detail is limited without contrast. No spondylolysis. There is anatomic alignment of the lumbar spine. Vertebral body height is preserved without evidence of acute fracture or spondylolisthesis. IMPRESSION: No acute abnormalities. Electronically signed by: Baldomero Tovar 04/26/2017 9:43 PM [facility]
[2017-04-27] MEDS: OMEPRAZOLE CAP 20 MG CAP PO SCH ×2 (09:24→09:25)
--- NOTE | 2017-04-27 11:00 | CT ---
EXAM DESCRIPTION: Head CLINICAL HISTORY: F/U on hemorrhage rt ventricle s/p fall COMPARISON: 04/26/2017 TECHNIQUE: Multiple axial images of the head without contrast. Multiplanar reformatted images. This exam was performed according to our departmental dose-optimization program, which includes automated exposure control, adjustment of the mA and/or kV according to patient size and/or use of iterative reconstruction technique. 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 This appears unchanged compared to the prior exam. No mass effect or large territory infarction. Mild generalized volume loss and mild patchy supratentorial white matter hypodensities. No subdural or epidural hematoma. Calcific plaque in the visualized arteries. There is no acute calvarial defect. Mild mucosal thickening in the ethmoid air cells. The mastoid air cells are clear. IMPRESSION: 1. 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 2. Senescent changes. Electronically signed by: Stanley Pope MD 04/27/2017 10:59 AM [facility]
[2017-04-27] MEDS: predniSONE 5 MG TAB PO SCH (12:54)
[2017-04-27] MEDS: SODIUM CHLORIDE 0.9% (FLUSH) 10 ML SYG IV SCH (20:24)
[2017-04-28] MEDS: OMEPRAZOLE CAP 20 MG CAP PO SCH (06:43)
[2017-04-28] MEDS: predniSONE 5 MG TAB PO SCH (09:22)
[2017-04-28] MEDS: SODIUM CHLORIDE 0.9% (FLUSH) 10 ML SYG IV SCH ×2 (09:23→20:31)
--- NOTE | 2017-04-28 12:44 | PN ---
DATE: 04/28/17 SUPERVISING PHYSICIAN: Zoltan Krishnan M.D. SUBJECTIVE: Ms. Carlisle was seen today for her head injury and weakness. She has been being monitored for neurologic symptomatology of brain bleed worsening. She is stable and has not had any worsening neurologic symptomatology. She complains of weakness. She is somewhat sedate. During conversation she was drifting to sleep. Physical Therapy attempted to get the patient up and she was weak and could not stand on her own or with assistance, and had to be manually lifted to the chair. Her lab work was reviewed. OBJECTIVE: VITAL SIGNS: Temperature 97.3, pulse 86, blood pressure 127/71, respiratory rate 16, oxygen saturation 99% on room air. Intake and output: intake 2160, output 1575. Weight yesterday 42.43 kg, today 42.18, down 2 kg. Lab was reviewed. Respiratory effort even in unlabored breath sounds are clear to auscultation bilaterally. Heart sounds normal S1 and S2, regular rate and rhythm. No murmurs, clicks or rubs. Peripheral pulses are palpable bilaterally with no edema of the extremities. Abdomen is soft, non-tender. Bowel sounds are active in all 4 quadrants. No masses palpable. No rebound or guarding noted. She has no vertebral tenderness. No CVA tenderness. No obvious trauma or deformities to her spine. EXTREMITIES: There are no deformities noted. There are scattered abrasions and ecchymotic areas at differing stages of healing over the lower extremities and upper extremities. There is no cyanosis, clubbing or edema. NEUROLOGIC: Cranial nerves II-XII are grossly intact. Facial features are symmetric. Extraocular movements are within normal limits. There is no notable nystagmus. She is awake, alert and oriented times three. Her coordination is slow. Skin is warm and dry, pink with scattered abrasions and ecchymotic areas on the face, head, chest arms and legs. 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 LABORATORY: Sodium 123, potassium 4.1, chloride 93, CO2 19, BUN 10, creatinine 0.69, glucose 75. ASSESSMENT: 1. Closed head injury secondary to fall. 2. Same level fall with no known loss of consciousness. 3. Leukocytosis probably secondary to demarginalization from trauma and environmental exposure with no obvious etiology of infectious process. 4. Mild electrolyte imbalance with hyponatremia not improving. 5. Elevated anion gap with a low CO2 more likely an acute metabolic acidosis from dehydration and acute trauma with a normal lactic acid. 6. History of recent pulmonary nodules followed by Dr. Johns, oncologist, seen on CT scan on previous admissions in January. 7. History of constipation. 8. Gastroesophageal reflux disease. 9. History of hypertension but currently on no medications. 10. Osteoporosis. 11. History of polymyalgia rheumatica. PLAN: Physical Therapy evaluated her today. She was unable to stand, therefore She needs physical therapy for strength training and coordination. [employer] should evaluate for possible rehab in the long term for 21 days if she qualifies. We will attempt to get her up at least standing at the bedside 3 times daily. Will continue to monitor her electrolyte imbalance. Magnesium level will be checked in the morning as well as a BMP. [facility][id number] [facility]
[2017-04-29] MEDS: OMEPRAZOLE CAP 20 MG CAP PO SCH (06:32)
[2017-04-29] MEDS: predniSONE 5 MG TAB PO SCH (09:56)
[2017-04-29] MEDS: SODIUM CHLORIDE 0.9% (FLUSH) 10 ML SYG IV SCH ×2 (09:57→20:30)
[2017-04-29] MEDS: IV SET AND CAP CHANGE INJ INJ SCH (12:31)
[2017-04-29] MEDS ORDERED: KCL IVS ONE (13:21)
[2017-04-29] MEDS ORDERED: [UNRECOGNIZED DRUG - OTHER] IVS ONE (13:21)
--- NOTE | 2017-04-29 13:40 | PN ---
DATE: 04/29/17 SUPERVISING PHYSICIAN: Zoltan Krishnan M.D. SUBJECTIVE: Ms. Carlisle was seen today. She was sitting up in the bed. Conversational. Awake and alert. She was admitted to the hospital for a head injury and weakness as well as hyponatremia which has not improved and in fact has worsened to some degree. She is being monitored for neurologic symptomatology of the brain for potential worsening brain bleed. She is unable to stand on her own and is weak. Yesterday Physical Therapy attempted to stand the patient and had to manually lift her over to the chair to keep her from falling. Her labs were rechecked this morning as per order yesterday. OBJECTIVE: VITAL SIGNS: Temperature 97.5, pulse 91, blood pressure 125/71, respiratory rate 18, oxygen saturation 100% on room air. Intake and output: 759 in, 1250 out. Her weight today was 41.27 kg. Physical examination: Ms. Carlisle is a 81 year-old white female who appears frail and thin. Pupils are equal , round and reactive to light. Extraocular movements are intact. HEART: Sounds are normal S1 and S2, regular rate and rhythm. No murmurs, clicks or rubs. Peripheral pulses are palpable bilaterally with no edema of the extremities. ABDOMEN: Soft, non-tender. Bowel sounds are active in all four quadrants with no palpable masses. No rebound or guarding noted. She has no vertebral tenderness. No CVA tenderness and no obvious trauma or deformity of her spine. There is no deformity of the extremities noted. She does have scattered abrasions and ecchymotic areas at different stages of healing over the lower and upper extremities bilaterally. There is no cyanosis, clubbing or edema. Cranial nerves II- XII are grossly intact. Facial symmetry is noted. Again, her extraocular movements are within normal limits. She has no nystagmus. She is awake, alert and oriented times three. Her coordination is slow. SKIN: Warm and dry, pink with scattered abrasions and ecchymotic areas as identified earlier in the physical exam. 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 LABORATORY: Her lab work is as follows: Sodium 123, potassium 3.5, chloride 93 , CO2 is 23, BUN 8, creatinine 0.67, glucose 86, magnesium level was 108 and calcium was 7.7. ASSESSMENT: 1. Hyponatremia. 2. Closed head injury secondary to fall. 3. Same level fall with no known loss of consciousness. 4. Leukocytosis probably secondary to demarginalization from trauma and environmental exposure with no obvious etiology of infectious process. 5. Mild electrolyte imbalance with hyponatremia not improving. 6. Elevated anion gap with a low CO2 more likely an acute metabolic acidosis from dehydration and acute trauma with a normal lactic acid. 7. History of recent pulmonary nodules followed by Dr. Johns, oncologist, seen on CT scan on previous admissions in January. 8. History of constipation. 9. Gastroesophageal reflux disease. 10. History of hypertension but currently on no medications. 11. Osteoporosis. 12. History of polymyalgia rheumatica. PLAN: Today we will add IV fluids of normal saline with 30 of KCl. She will get 2 liters at 85 mL per hour until complete. We were not able to start Demeclocycline 300 mg p.o. every 12 hours due to availability. We will continue to work on strength training and she will continue physical therapy starting again tomorrow. Network Liaison will work on getting her in the group home for rehabilitation. We will attempt to get her up and standing at the bedside 3 times daily. We will continue to monitor and treat appropriately until tomorrow reevaluation. Zoltan Krishnan M.D. was available for consultation in person and agreed with the plan. #[id number] [facility]
[2017-04-30] MEDS: OMEPRAZOLE CAP 20 MG CAP PO SCH (06:32)
[2017-04-30] MEDS: predniSONE 5 MG TAB PO SCH (10:18)
[2017-04-30] MEDS: SODIUM CHLORIDE 0.9% (FLUSH) 10 ML SYG IV SCH ×2 (10:48→20:32)
--- NOTE | 2017-04-30 16:14 | PN ---
SUPERVISING PHYSICIAN: Den Jimenez MD DATE: 04/30/17 SUBJECTIVE: The patient is sitting in bed. She answers questions appropriately , but she gets a little confused. She reorients easily. She denies any chest pain, shortness of breath, nausea, vomiting or diarrhea. She walked around in her room today with therapy and has no complaints. OBJECTIVE: VITAL SIGNS: Afebrile. Blood pressure 128/69. Respiratory rate 16. Pulse 80. O2 saturation 100% on room air. LUNGS: Essentially clear to auscultation bilaterally. CARDIAC: Regular rate and rhythm. ABDOMEN: Soft, nondistended, nontender. Bowel sounds are positive. EXTREMITIES: No cyanosis, clubbing or edema. NEUROLOGIC: Cranial nerves II-XII are grossly intact. Awake, alert and oriented to person and place. LABORATORY: WBCs have normalized to 10.8 with a hemoglobin 12.7, hematocrit 36.6. Sodium 123, potassium 3.5, chloride 93, carbon dioxide 23. Preliminary blood cultures show no growth after four days. All other labs and films have been reviewed via the EMR. ASSESSMENT: 1. Hyponatremia. 2. Closed head injury secondary to fall. 3. Same level fall with no known loss of consciousness. 4. Leukocytosis, resolved. 5. Mild hypokalemia. 6. Elevated anion gap with a low CO2, lost likely an acute metabolic acidosis from dehydration and acute trauma with a normal lactic acid. 7. History of recent pulmonary nodules, followed by Dr. Johns, oncologist, seen on CT scan on previous admissions in January. 8. History of constipation. 9. Gastroesophageal reflux disease. 10. History of hypertension presently no antihypertensive. 11. Osteoporosis. 12. History of polymyalgia rheumatica. PLAN: We will continue present supportive care. I have given her some p.o. potassium and I have put her on fluid restrictions. Her IV fluids have been discontinued. I will recheck her lab in the morning. Physical therapy has evaluated her and deemed she may be an appropriate admission for Swing Bed, so as soon as her electrolytes are improved, we can consider changing the patient from Acute Care status to Swing Bed admission. Ilsa Thomas, our Biostatistician, will speak to the patient and her son tomorrow for discharge planning. She will continue with strengthening and conditioning per physical therapy. We continue to monitor the patient closely and follow as needed. Dr. Jimenez is the collaborating physician and available for consultation. #[id number] [facility]
[2017-05-01] MEDS: OMEPRAZOLE CAP 20 MG CAP PO SCH (06:09)
[2017-05-01] MEDS: SODIUM CHLORIDE 0.9% (FLUSH) 10 ML SYG IV SCH (09:20)
[2017-05-01 09:49] VITALS: TEMP 97.8; O2SAT 99
[2017-05-01] MEDS: predniSONE 5 MG TAB PO SCH (09:52)
[2017-05-01 14:22] VITALS: BP 98/62
--- NOTE | 2017-05-02 18:32 | DS ---
SUPERVISING PHYSICIAN: Den Jimenez M.D. DISCHARGE DIAGNOSIS: 1. Hyponatremia. 2. Closed head injury secondary to fall. 3. Same level fall with no loss of consciousness. 4. Leukocytosis, resolved. 5. Mild hypokalemia. 6. Elevated anion gap with a low CO2 most likely due to acute metabolic acidosis from dehydration and acute trauma with a normal lactic acid. 7. History of recent pulmonary nodules followed by Dr. Johns, oncologist, as seen on CT scan on previous admission in January. 8. Constipation. 9. Gastroesophageal reflux disease. 10. History of hypertension presently on no antihypertensive medications. 11. Osteoporosis. 12. History of polymyalgia rheumatica. HISTORY OF PRESENT ILLNESS: This is a 81 year-old female patient that presented to the Emergency Room on the date of admission after she sustained a fall during the night around 4:30 in the morning. She was attempting to let her dog outside. She was found by her son at 6:00 AM next to the door. EMS was called and upon arrival the patient's temperature was 87 degrees. By the time she arrived to the Emergency Room it was 94. She had altered mentation for approximately 2 hours. She was warmed up in the Emergency Room and that improved her mentation. She had been seen 3 days prior to her admission in the Emergency Room due to difficulty ambulating. She is very frail and advanced in age. Her head CT at that time showed no acute findings, but on the date of admission the CT findings per radiology interpretation showed a tiny right periventricular bleed that was noted 6 hours after the fall but no other acute changes. Of note is that her CBC showed some significant leukocytosis at 23, 100. No obvious signs of infection were noted on chest x-ray or the urinalysis. She had multiple x-rays of her pelvis and knee secondary to her fall and per those reports there were no acute abnormalities or acute fractures noted. Dr. Jimenez, the E. R. physician, started the patient on Zosyn. Blood cultures were obtained. She was admitted to the Medical/Surgical floor for ongoing treatment and close monitoring. HOSPITAL COURSE: Her WBCs normalized until today. They are 8.1. She was placed on fluid restrictions and today her sodium is 134. Her blood cultures actually had no growth after 5 days. Her vital signs have stabilized. She will be discharged today from the Acute Care setting. DISCHARGE PLAN: The patient will be discharged and readmitted to the hospital under Swing Bed admission. She will resume her previous medications. She will have physical therapy for strengthening and conditioning. Hopefully she can be discharged in the next few days to a care home facility. She is to have a followup with Dr. Krishnan after her Swing Bed discharge. DISCHARGE MEDICATIONS: 1. Omeprazole. 2. Prednisone. #[id number] [facility]
== END 2017-05-01 14:58 | disposition swing bed (61) | DRG 86 ==
LOC: ER 06:38 → MS 12:19
PROVIDERS: ADMIT Nurse Practitioner Family; ATTEND Nurse Practitioner Family
DX: S06.300A Unspecified focal traumatic brain injury without loss of consciousness, initial encounter (principal); E87.1 Hypo-osmolality and hyponatremia; E87.2 Acidosis; T68.XXXA Hypothermia, initial encounter; X31.XXXA Exposure to excessive natural cold, initial encounter; E53.8 Deficiency of other specified B group vitamins; K21.9 Gastro-esophageal reflux disease without esophagitis; J30.9 Allergic rhinitis, unspecified; M81.0 Age-related osteoporosis without current pathological fracture; M35.3 Polymyalgia rheumatica; R42 Dizziness and giddiness; R91.1 Solitary pulmonary nodule; R63.4 Abnormal weight loss; R29.6 Repeated falls; W18.30XA Fall on same level, unspecified, initial encounter; D72.829 Elevated white blood cell count, unspecified; E87.6 Hypokalemia; E86.0 Dehydration; K59.00 Constipation, unspecified; Z88.8 Allergy status to other drugs, medicaments and biological substances; S01.112D Laceration without foreign body of left eyelid and periocular area, subsequent encounter; Y92.008 Other place in unspecified non-institutional (private) residence as the place of occurrence of the external cause; Y93.F9 Activity, other caregiving; Z79.52 Long term (current) use of systemic steroids; Z79.899 Other long term (current) drug therapy

== ENCOUNTER → 2017-05-31 | Outpatient (CLI) | payer MEDICARE, OTHER | END | disposition home or self-care (01) | LOC: GT 04:26 | PROVIDERS: ATTEND Family Medicine | DX: R41.0 Disorientation, unspecified (principal) ==

== ENCOUNTER → 2017-06-05 | Outpatient (CLI) | payer MEDICARE, OTHER ==
--- NOTE | 2017-06-05 21:50 | CT ---
EXAM DESCRIPTION: Head CLINICAL HISTORY: MONITOR BLEEDING COMPARISON: 04/27/2017 TECHNIQUE: Contiguous axial CT images of the head were obtained. Coronal and sagittal reconstructions were created from the axial data. This exam was performed according to our departmental dose-optimization program, which includes automated exposure control, adjustment of the mA and/or kV according to patient size and/or use of iterative reconstruction technique. 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 No new hemorrhage is seen elsewhere. Poorly defined foci of decreased attenuation do not exert significant mass effect on surrounding structures and are likely sequela of prior insult, most likely on the basis of small vessel disease. There is no evidence of acute mass, mass effect, midline shift or hemorrhage. The ventricles and extra-axial CSF spaces are unremarkable. No acute abnormalities of the bones is seen. IMPRESSION: No acute intracranial abnormality. Electronically signed by: Baldomero Tovar 06/05/2017 9:49 PM [employer]
== END | disposition home or self-care (01) ==
LOC: CT 17:10
PROVIDERS: ATTEND Family Medicine
DX: I61.9 Nontraumatic intracerebral hemorrhage, unspecified (principal)

== ENCOUNTER → 2017-06-06 | Outpatient (CLI) | payer MEDICARE, OTHER | LOC: GT 07:57 | PROVIDERS: ATTEND Family Medicine | DX: E46 Unspecified protein-calorie malnutrition (principal); B99.9 Unspecified infectious disease ==

== ENCOUNTER → 2017-06-08 | Outpatient (CLI) | payer MEDICARE, OTHER | LOC: GT 06:44 | PROVIDERS: ATTEND Family Medicine | DX: E46 Unspecified protein-calorie malnutrition (principal); B99.9 Unspecified infectious disease | CPT/HCPCS: 36415; 80048; P9603 ==

== ENCOUNTER → 2017-06-12 | Outpatient (CLI) | payer MEDICARE, OTHER ==
--- NOTE | 2017-06-13 08:21 | CT ---
EXAM DESCRIPTION: Chest w/o Contrast CLINICAL HISTORY: 81 years, Female, ABNORMAL RESULTS OD CHEST X-RAY, HYPONETREMIA COMPARISON: None TECHNIQUE: Thin-section noncontrast axial CT images are obtained according to our protocol. Reconstructed MPR images are created and reviewed as well. This exam was performed according to our departmental dose-optimization program, which includes automated exposure control, adjustment of the mA and/or kV according to patient size and/or use of iterative reconstruction technique. FINDINGS: Rather marked kyphosis of the dorsal spine is present with increased AP diameter of the chest and flattened diaphragms consistent with an element of obstructive lung disease and emphysema mild compression deformity and central impaction of the superior endplate of T11 is present and likely represents an old finding. Very minimal changes involving the superior endplate of T8 and T9 and T7 is also noted. Very little loss of vertebral height at these levels is noted. Apical regions are moderately emphysematous but no significant infiltrates are seen. On the left there is no significant upper lobe infiltrate except at the anterior lung base within the lingula with minimal patchy nonsegmental infiltrate. More extensive changes in the posterior segment of the left lower lobe with patchy atelectasis is present with a tiny amount of pleural fluid at the posterior left lung base. On the right there is more extensive patchy nonsegmental infiltrate in the right lower lobe consistent with bronchopneumonia. There are minimal changes along the major fissure in the posterior aspect of the right upper lobe as well as extension into the anterior right middle lobe. At least mild bronchiectasis the anterior right lung base is apparent. No significant pleural fluid on the right is noted. Heart size is normal without pericardial effusion and a definite hilar or mediastinal mass is not apparent. No definite hilar or mediastinal adenopathy noted on noncontrast imaging. On the left there is one area of more dense opacification in the medial left lung base adjacent to the aortic margin that likely represents a focal area of subsegmental consolidation. A focal mass approximately 1.5 x 3 cm in size could not be entirely excluded. This is more wedgelike on the coronal imaging and more consistent with a small segment of atelectasis or dense consolidation. Follow-up to resolution with repeat imaging in 3-4 weeks to demonstrate clearing particularly of this region in the medial left lung base is recommended IMPRESSION: 1. Markedly abnormal lower lobes bilaterally with nonsegmental scattered patchy areas of infiltration consistent with bilateral bronchopneumonia with some small areas of more dense consolidation that are segmental or subsegmental, particularly in the medial left lung base. Minimal similar changes in the right middle lobe and left lingula at the anterior lung base is noted. 2. Tiny amount of pleural fluid layering posteriorly at the left costophrenic angle. 3. Hyperexpanded lungs with apical emphysematous changes and increased AP diameter. Tubular bronchiectasis particularly in the right middle lobe noted. 4. Marked kyphosis of the dorsal spine with mild compression deformity of T11 and minimal superior endplate impaction in the mid thoracic spine at multiple levels. This likely represents chronic findings. 5. Follow-up examination in 3-4 weeks to reassess clearing of the infiltrative changes particularly the area of more dense opacification in the medial left lung base adjacent to the aorta. Electronically signed by: Den Haque MD 06/13/2017 8:20 AM [facility]
== END ==
LOC: CT 14:30
PROVIDERS: ATTEND Family Medicine
DX: R91.8 Other nonspecific abnormal finding of lung field (principal); E87.1 Hypo-osmolality and hyponatremia